=== PATIENT | male | born 1970 | race Two or more races ===

== ENCOUNTER 2024-02-10 05:32 | Day surgery (SDC) | payer OTHER ==
[2024-02-10] MEDS ORDERED: CEFAZOLIN SODIUM 1,000 MG VIAL ONE (07:17)
[2024-02-10] MEDS ORDERED: POVIDONE-IODINE 118 ML BOTT TOP ONE (08:13)
[2024-02-10] MEDS ORDERED: LIDOCAINE HCL/EPINEPHRINE 1% 50ML VIAL IJ ONE ×2 (08:14→09:30)
[2024-02-10] MEDS ORDERED: BUPIVACAINE HCL/PF 0.25% 30ML VIAL InF ONE (08:14)
[2024-02-10] MEDS ORDERED: CEFAZOLIN SODIUM 1,000 MG VIAL IV ONE (09:30)
[2024-02-10] MEDS ORDERED: BUPIVACAINE HCL 30 ML VIAL IJ ONE (09:30)
== END 2024-02-10 12:03 | disposition home or self-care (01) ==
LOC: CIR.AMB 05:32
PROVIDERS: ATTEND Colon & Rectal Surgery
DX: R15.9 Full incontinence of feces (principal); Z88.1 Allergy status to other antibiotic agents
CPT/HCPCS: 64581; 95971; C1778